=== PATIENT | male | born 1960 | race Caucasian/White ===

== ENCOUNTER 2018-08-09 17:04 | Emergency (ER) | payer OTHER ==
--- NOTE | 2018-08-09 17:11 | PDOC ---
History of Present Illness <Cindy Travis - Last Filed: 08/09/18 20:28> - History of Present Illness Initial Comments: 58yo with history of HLD presenting with weakness, body aches, nasal congestion , cough x 2 weeks. He has felt subjective fever, but did not measure his temperature with a thermometer at home.Patient reports that he took three days of amoxicillin Wed to Fri after which he felt better, but is now feeling worse. He took two doses of Robitussin CF at 8am and 1pm with some relief. He has not had a flu shot this year. Upon being asked about sick contacts, patient reports that everyone around him is sick, including his who is on antibiotics prescribed from an urgent care clinic for nasal congestion. Patient presents today because he has loss of appetite, experienced some nausea, has not eaten very much today, and feels dehydrated. His at the bedside reports that he is usually robust and that he has come to the emergency department is unusual. Denies chest pain, shortness of breath, abdominal pain. <Nanci Garrison - Last Filed: 08/11/18 06:59> - General Chief Complaint: Weakness Stated Complaint: WEAK BODY ACHES FEVER NAUSEA Time Seen by Provider: 08/09/18 17:11 Past History <Cindy Travis - Last Filed: 08/09/18 20:28> - Suicide/Smoking/Psychosocial Hx Smoking History: Never smoked Hx Alcohol Use: No Substance Use Type: None <Nanci Garrison - Last Filed: 08/11/18 06:59> - Past Medical History Allergies/Adverse Reactions: Allergies Allergy/AdvReac Type Severity Reaction Status Date / Time aspirin Allergy Severe Swelling Verified 08/09/18 17:07 NSAIDS (Non-Steroidal Allergy Severe Swelling Verified 08/09/18 17:07 Anti-Inflamma Home Medications: Ambulatory Orders Ondansetron [Zofran Odt -] 4 mg SL TID PRN #12 od.tablet 08/09/18 Rosuvastatin [Crestor -] 5 mg PO DAILY 08/09/18 Review of Systems - Review of Systems Comments:: Constitutional: +fever, +chills HEENT: +throat pain, no dysphagia Cardiovascular: no chest pain, no palpitations Respiratory: +cough, no shortness of breath Gastrointestinal: no abdominal pain, +nausea, no vomiting Genitourinary: no dysuria, no frequency Musculoskeletal: +myalgia, +arthralgia Skin: no rash, no itching Neurologic: +headache, no dizziness <Nanci Garrison - Last Filed: 08/11/18 06:59> *Physical Exam - Vital Signs Last Vital Signs Temp Pulse Resp BP Pulse Ox 99.8 F H 66 16 103/61 97 08/09/18 19:22 08/09/18 19:22 08/09/18 19:22 08/09/18 19:22 08/09/18 19:22 <Cinyd Travis - Last Filed: 08/09/18 20:28> - Physical Exam Comments: General: Awake, alert, and fully oriented, in no acute distress Head: No signs of trauma Eyes: EOMI, sclera anicteric ENT: Dry mucus membranes Neck: Normal ROM, supple Lungs: Lungs clear, Normal breath sounds Cardio: Regular rhythm, S1 and S2 present Abdomen: Soft, nontender. Bowel sounds present. No guarding, no rebound, no masses Extremities: Normal range of motion, Distal pulses present SKIN: Warm, Dry, normal turgor Neurologic: Cranial nerves II through XII grossly intact. Normal speech <Nanci Garrison - Last Filed: 08/11/18 06:59> Moderate Sedation - Procedure Monitoring Vital Signs: Procedure Monitoring Vital Signs Temperature 99.8 F H 08/09/18 19:22 Pulse Rate 66 08/09/18 19:22 Respiratory Rate 16 08/09/18 19:22 Blood Pressure 103/61 08/09/18 19:22 O2 Sat by Pulse Oximetry (%) 97 08/09/18 19:22 <Cindy Travis - Last Filed: 08/09/18 20:28> ED Treatment Course - LABORATORY CBC & Chemistry Diagram: 08/09/18 18:00 08/09/18 18:00 - ADDITIONAL ORDERS Additional order review: Laboratory Results 08/09/18 18:00 Sodium 132 L Potassium 4.1 Chloride 105 Carbon Dioxide 20 L D Anion Gap 7 L BUN 12 Creatinine 0.7 Creat Clearance w eGFR > 60 Random Glucose 102 Calcium 8.8 Total Bilirubin 0.8 AST 25 ALT 20 D Alkaline Phosphatase 43 Total Protein 7.4 Albumin 3.9 08/09/18 18:00 RBC 4.60 MCV 91.8 MCHC 33.3 RDW 12.2 MPV 8.4 Neutrophils % 86.1 H D Lymphocytes % 8.5 D Monocytes % 4.1 Eosinophils % 0.7 Basophils % 0.6 - Medications Given in the ED: ED Medications Discontinued Medications Generic Name Dose Route Start Last Admin Trade Name Oly PRN Reason Stop Dose Admin Acetaminophen 1,000 mg 08/09/18 17:53 08/09/18 18:10 Ofirmev Injection - IVPB 08/09/18 17:54 1,000 mg ONCE ONE Administration Sodium Chloride 1,000 mls @ 1,000 mls/hr 08/09/18 17:53 08/09/18 18:00 Normal Saline - IV 08/09/18 18:52 1,000 mls/hr ASDIR STA Administration Sodium Chloride 1,000 mls @ 1,000 mls/hr 08/09/18 18:45 08/09/18 18:58 Normal Saline - IV 08/09/18 19:44 1,000 mls/hr ASDIR STA Administration <Cindy Travis - Last Filed: 08/09/18 20:28> - LABORATORY CBC & Chemistry Diagram: 08/09/18 18:00 08/09/18 18:00 <Nanci Garrison - Last Filed: 08/11/18 06:59> Medical Decision Making - Medical Decision Making 58yo with history of HLD presenting with weakness, body aches, nasal congestion , cough x 2 weeks. He has felt subjective fever, but did not measure his temperature with a thermometer at home. -DDX includes but not limited to influenza, URI viral vs bacterial, malignancy -Labs: rapid flu test, CBC, CMP -1L NS , 1g Ofirmev 08/09/18 18:35 Patient reports feeling somewhat better after receiving 1L NS. Another 1L ordered. Pending labs. 08/09/18 18:49 Patient signed out to incoming team <Nanci Garrison - Last Filed: 08/11/18 06:59> *DC/Admit/Observation/Transfer <Cindy Travis - Last Filed: 08/09/18 20:28> <Nanci Garrison - Last Filed: 08/11/18 06:59> Diagnosis at time of Disposition: Viral syndrome - Discharge Dispostion Disposition: HOME Condition at time of disposition: Stable - Prescriptions Prescriptions: Ondansetron [Zofran Odt -] 4 mg SL TID PRN #12 od.tablet PRN Reason: Nausea - Patient Instructions Printed Discharge Instructions: DI for Viral Syndrome Additional Instructions: rest, drink plenty of fluids we will contact you if influenza test is positive Zofran ODT 4mg up to 3 times a day for nausea advance diet as tolerated followup with your general doctor as scheduled return to ER if you have persistent high fever/weakness/ persistent vomiting
[2018-08-09 17:18] VITALS: BMI 26.7
[2018-08-09] MEDS ORDERED: ACETAMINOPHEN 1000 MG/100 ML VIAL (NON FORMULARY) IVPB ONE (17:53)
[2018-08-09] MEDS ORDERED: SODIUM CHLORIDE 1,000 ML IV STA ×2 (17:53→18:45)
[2018-08-09] MEDS ORDERED: ACETAMINOPHEN INJECTION 100 ML IVPB ONE (18:05)
--- NOTE | 2018-08-09 18:12 | PDOC ---
Attending Attestation - Resident Resident Name: Nanci Garrison - ED Attending Attestation I have performed the following: I have examined & evaluated the patient, The case was reviewed & discussed with the resident, I agree w/resident's findings & plan, Exceptions are as noted - HPI HPI: 08/09/18 18:31 URI symptoms with nasal congestion, watery discharge, fatigue, malaise, anorexia , and decreased oral intake. Began approximately 2 weeks ago, seemed to get better over the weekend, then recurrent symptoms. Subjective fever but did not take his temperature at home. No chills. No chest pain, shortness of breath, abdominal pain, vomiting, diarrhea. Healthy male, no significant past medical or surgical problems, no medications. Works as a gaming cashier. No tobacco alcohol or drugs - Physicial Exam PE: 08/09/18 18:32 Physical exam: Afebrile, vital signs normal HEENT: Watery nasal discharge, congestion mild to moderate without sinus tenderness. Neck supple without bruit mass or nodes Chest clear. Full breath sounds bilaterally. No wheezes rales or rhonchi CV without murmur rub or gallop Abdomen nondistended. Bowel sounds normal. Soft without mass tenderness organomegaly. Specifically, no liver inflammation or enlargement palpable and no right upper quadrant tenderness. Extremities no CCE Skin clear, no rash, adequate turgor, but mucous membranes are somewhat dry Neurological intact - Medical Decision Making 08/09/18 18:33 Assessment: Healthy male with persistent URI symptoms, dehydration. Plan: Flu swab, CBC, chemistries including electrolytes BUN/creatinine liver function tests, IV hydration and Tylenol. Observe and further evaluation depending on results
[2018-08-09 18:22] LABS: BASO % 0.6 % (0-2.0); EOS % 0.7 % (0-4.5); HEMATOCRIT 42.2 % (35.4-49); HEMOGLOBIN 14.1 GM/dl (11.7-16.9); LYMPH % 8.5 % (8-40); MCH 30.6 pg (25.7-33.7); MCHC 33.3 g/dl (32.0-35.9); MEAN CELL VOLUME 91.8 fl (80-96); MEAN PLT VOLUME 8.4 fl (7.5-11.1); MONO % 4.1 % (3.8-10.2); NEUT % 86.1 % (42.8-82.8); PLATELET COUNT 306 K/MM3 (134-434); RDW 12.2 % (11.9-15.9); WHITE BLOOD COUNT 6.5 K/mm3 (4.0-10.8)
[2018-08-09 19:24] VITALS: BP 103/61; PULSE 66; TEMP 99.8
[2018-08-09 19:29] LABS: ALBUMIN 3.9 g/dl (3.5-5.0); ALK PHOS 43 U/L (32-92); ANION GAP 7 MMOL/L (8-16); BILIRUBIN,TOTAL 0.8 mg/dl (0.2-1.0); BLOOD UREA NITROGEN 12 mg/dl (7-18); CALCIUM 8.8 mg/dl (8.4-10.2); CHLORIDE 105 mmol/L (98-107); CO2 20 mmol/L (22-28); CREATININE 0.7 mg/dl (0.6-1.3); GLUCOSE,RANDOM 102 mg/dl (74-106); POTASSIUM 4.1 mmol/L (3.5-5.1); SGOT/AST 25 U/L (10-42); SGPT/ALT 20 U/L (10-40); SODIUM 132 mmol/L (136-145); TOT PROT 7.4 g/dl (6.4-8.3)
--- NOTE | 2018-08-09 20:31 | PDOC ---
*Physical Exam - Vital Signs Last Vital Signs Temp Pulse Resp BP Pulse Ox 99.8 F H 66 16 103/61 97 08/09/18 19:22 08/09/18 19:22 08/09/18 19:22 08/09/18 19:22 08/09/18 19:22 ED Treatment Course - LABORATORY CBC & Chemistry Diagram: 08/09/18 18:00 08/09/18 18:00 - ADDITIONAL ORDERS Additional order review: Laboratory Results 08/09/18 18:00 Sodium 132 L Potassium 4.1 Chloride 105 Carbon Dioxide 20 L D Anion Gap 7 L BUN 12 Creatinine 0.7 Creat Clearance w eGFR > 60 Random Glucose 102 Calcium 8.8 Total Bilirubin 0.8 AST 25 ALT 20 D Alkaline Phosphatase 43 Total Protein 7.4 Albumin 3.9 08/09/18 18:00 RBC 4.60 MCV 91.8 MCHC 33.3 RDW 12.2 MPV 8.4 Neutrophils % 86.1 H D Lymphocytes % 8.5 D Monocytes % 4.1 Eosinophils % 0.7 Basophils % 0.6 - Medications Given in the ED: ED Medications Discontinued Medications Generic Name Dose Route Start Last Admin Trade Name Freq PRN Reason Stop Dose Admin Acetaminophen 1,000 mg 08/09/18 17:53 08/09/18 18:10 Ofirmev Injection - IVPB 08/09/18 17:54 1,000 mg ONCE ONE Administration Sodium Chloride 1,000 mls @ 1,000 mls/hr 08/09/18 17:53 08/09/18 18:00 Normal Saline - IV 08/09/18 18:52 1,000 mls/hr ASDIR STA Administration Sodium Chloride 1,000 mls @ 1,000 mls/hr 08/09/18 18:45 08/09/18 18:58 Normal Saline - IV 08/09/18 19:44 1,000 mls/hr ASDIR STA Administration Progress Note - Progress Note Progress Note: Patient feels much improved after IV fluid hydration. Patient will be discharged in the company of his with instructions to rest, drink plenty of fluids and to use Tylenol as needed for pain/fever. He should return to the emergency room if he has persistent high fever or develops persistent vomiting. Otherwise, he should follow-up with his own general doctor within the next week. Since patient had some nausea during his presentation, outpatient prescription for Zofran ODT 4 mg up to 3 times a day will be sent to his pharmacy. Results of the influenza rapid test were delayed: Because the patient felt much improved and because his symptoms had begun approximately a week ago (therefore antiviral medication would be much less effective), patient was discharged prior to results of the influenza test being known. He will be called at home if influenza test is positive. *DC/Admit/Observation/Transfer Diagnosis at time of Disposition: Viral syndrome - Discharge Dispostion Disposition: HOME Condition at time of disposition: Stable - Prescriptions Prescriptions: Ondansetron [Zofran Odt -] 4 mg SL TID PRN #12 od.tablet PRN Reason: Nausea - Referrals - Patient Instructions Printed Discharge Instructions: DI for Viral Syndrome Additional Instructions: rest, drink plenty of fluids we will contact you if influenza test is positive Zofran ODT 4mg up to 3 times a day for nausea advance diet as tolerated followup with your general doctor as scheduled return to ER if you have persistent high fever/weakness/ persistent vomiting - Post Discharge Activity
[2018-08-09] MEDS ORDERED: ONDANSETRON *ODT* 4 MG TABLET ONE (20:38)
== END 2018-08-09 20:45 | disposition home or self-care (01) ==
LOC: FER 17:04
PROC: 3E033NZ Introduction of Analgesics, Hypnotics, Sedatives into Peripheral Vein, Percutaneous Approach (ICD-10-PCS; principal; 2018-08-09)
PROC: 3E0337Z Introduction of Electrolytic and Water Balance Substance into Peripheral Vein, Percutaneous Approach (ICD-10-PCS; 2018-08-09)
DX: B34.9 Viral infection, unspecified (principal); E78.5 Hyperlipidemia, unspecified
CPT/HCPCS: 36415; 80053; 85025; 87804; 99283-25; J0131; J7030

== ENCOUNTER 2022-10-18 18:27 | Emergency (ER) | payer OTHER ==
[2022-10-18 18:37] VITALS: BP 148/91; PULSE 69; RESP 16; TEMP 98.4; BMI 27.1
[2022-10-18] MEDS ORDERED: DIPHTH,PERTUSS(ACELL),TET 0.5 ML DISP.SYRIN IM ONE ×2 (18:58→19:01)
== END 2022-10-18 19:57 | disposition home or self-care (01) ==
LOC: FER 18:27
PROC: 3E0234Z Introduction of Serum, Toxoid and Vaccine into Muscle, Percutaneous Approach (ICD-10-PCS; principal; 2022-10-18)
PROC: 0HQGXZZ Repair Left Hand Skin, External Approach (ICD-10-PCS; 2022-10-18)
DX: S61.012A Laceration without foreign body of left thumb without damage to nail, initial encounter (principal); W26.8XXA Contact with other sharp object(s), not elsewhere classified, initial encounter
CPT/HCPCS: 90715; 99284-25